=== PATIENT | male | born 1965 | race Caucasian/White ===

== ENCOUNTER 2017-11-11 15:27 | Day surgery (SDC) | payer OTHER, MEDICAID ==
[2017-11-11] MEDS ORDERED: MIDAZOLAM 1 MG/ML 2 ML INJ (17:41)
[2017-11-11] MEDS: POLYMYXIN/BACITRACIN 1L IRRIG (18:02)
[2017-11-11] MEDS ORDERED: PROPOFOL 20 ML (19:16)
[2017-11-11] MEDS ORDERED: CEFAZOLIN 1 GM INJ (19:16)
[2017-11-11] MEDS ORDERED: LIDOCAINE 2% (SDV) 5 ML INJ (19:16)
[2017-11-11] MEDS ORDERED: ONDANSETRON 4 MG INJ (19:17)
[2017-11-11] MEDS ORDERED: ROPIVACAINE 0.5 % 30 ML VIAL (19:17)
[2017-11-11] MEDS ORDERED: MEPERIDINE 25 MG INJ IV (20:00)
[2017-11-11] MEDS ORDERED: FENTAnyl 50 MCG/ML VIAL IV (20:00)
[2017-11-11] MEDS ORDERED: ONDANSETRON 4 MG INJ IV (20:00)
[2017-11-11] MEDS ORDERED: hydrALAzine 20 MG INJ IV (20:00)
[2017-11-11] MEDS ORDERED: DIPHENHYDRAMINE 50 MG INJ IV (20:00)
[2017-11-11] MEDS ORDERED: NALOXONE (0.4 MG/ML) INJ IV (20:00)
[2017-11-12] MEDS ORDERED: INFLUENZA VIRUS VACCINE 0.5 ML (DISPENSING) IM* (09:00)
== END 2017-11-11 20:52 | disposition home or self-care (01) ==
LOC: SDS 15:27
DX: S66.121D Laceration of flexor muscle, fascia and tendon of left index finger at wrist and hand level, subsequent encounter (principal); S64.491D Injury of digital nerve of left index finger, subsequent encounter; S62.611D Displaced fracture of proximal phalanx of left index finger, subsequent encounter for fracture with routine healing; D36.12 Benign neoplasm of peripheral nerves and autonomic nervous system, upper limb, including shoulder; W29.8XXD Contact with other powered hand tools and household machinery, subsequent encounter
CPT/HCPCS: 26350; 88304; 88311